=== PATIENT | female | born 1985 | race Caucasian/White ===

== ENCOUNTER 2018-05-09 05:28 | Day surgery (SDC) | payer OTHER ==
[~2018-05-09] VITALS: Ht 154.9 cm; Wt 49.9 kg
[~2018-05-09 05:28] MED LIST: SPRINTEC1 EACH PO
[2018-05-09 06:04] VITALS: BP 120/64
[2018-05-09] MEDS ORDERED: DILAUDID4 MG PO (08:51)
[2018-05-09] MEDS ORDERED: ONDANSETRON HCL8 MG PO (08:51)
[2018-05-09] MEDS ORDERED: COLACE100 MG PO (08:51)
[2018-05-09 10:00] VITALS: BP 102/56
[2018-05-09 10:43] VITALS: BP 101/63
== END 2018-05-09 10:55 | disposition home or self-care (01) ==
LOC: SDC 05:28
PROVIDERS: Surgery
DX: D22.5 Melanocytic nevi of trunk (principal); D22.72 Melanocytic nevi of left lower limb, including hip
CPT/HCPCS: 81025; 88305; J0131; J0330; J0690; J2250; J3010

== ENCOUNTER 2018-06-06 06:22 | Day surgery (SDC) | payer OTHER ==
[~2018-06-06] VITALS: Ht 152.4 cm; Wt 54.4 kg
[~2018-06-06 06:22] MED LIST changes: +COLACE100 MG PO; +DILAUDID4 MG PO; +ONDANSETRON HCL8 MG PO; +PAIN RELIEF325 M1 PO
[2018-06-06 06:35] VITALS: BP 112/75
[2018-06-06] MEDS ORDERED: HYDROCODON-ACE1 EAC7 PO (09:19)
[2018-06-06 10:25] VITALS: BP 134/59
[2018-06-06 11:05] VITALS: BP 108/60
== END 2018-06-06 11:10 | disposition home or self-care (01) ==
LOC: SDC
PROC: 0HBT0ZZ Excision of Right Breast, Open Approach (ICD-10-PCS; principal; 2018-06-06)
DX: D24.1 Benign neoplasm of right breast (principal); Z87.891 Personal history of nicotine dependence
CPT/HCPCS: 88307; J0690; J1100; J1170; J1885; J2250; J2405; J3010; S0020